=== PATIENT | male | born 1980 | race Caucasian/White ===

== ENCOUNTER → 2017-12-29 | Outpatient (CLI) | payer OTHER ==
--- NOTE | 2017-12-29 15:29 | US ---
EXAMINATION TYPE: US venous doppler duplex LE RT DATE OF EXAM: 12/29/2017 3:22 PM COMPARISON: NONE CLINICAL HISTORY: 37-year-old male M79.661 Pain In Limb, R22.41 Swelling. Right lower leg pain SIDE PERFORMED: right TECHNIQUE: The lower extremity deep venous system is examined utilizing real time linear array sonog sary with graded compression, doppler sonography and color-flow sonography. FINDINGS: VESSELS IMAGED: External Iliac Vein (EIV) Common Femoral Vein Deep Femoral Vein Greater Saphenous Vein * Femoral Vein Popliteal Vein Small Saphenous Vein * (* superficial vessels) Right Leg: No evidence of DVT at this time. Superficial thrombus noted right small saphenous vein IMPRESSION: 1. No evidence for DVT within the right lower extremity imaged from the groin to the knee. 2. Exam positive for SVT involving the small saphenous vein.
== END | disposition home or self-care (01) ==
LOC: RADUSWWP 14:50
PROVIDERS: ATTEND Family Medicine
DX: I82.811 Embolism and thrombosis of superficial veins of right lower extremity (principal); R22.41 Localized swelling, mass and lump, right lower limb; Z88.0 Allergy status to penicillin; Z91.040 Latex allergy status

== ENCOUNTER → 2019-11-24 | Outpatient (CLI) | payer OTHER ==
--- NOTE | 2019-11-24 20:14 | CT ---
EXAMINATION TYPE: CT chest wo con DATE OF EXAM: 11/24/2019 COMPARISON: None HISTORY: 39-year-old male Pulmonary nodule LT lung TECHNIQUE: Contiguous axial scanning of the chest without IV contrast. Coronal and sagittal reconstru ctions performed. CT DLP: 568.90 mGycm Automated exposure control for dose reduction was used. FINDINGS: Heart normal size without pericardial effusion. Borderline ectasia aortic root at 3.5 cm. Conventional arch vessel branching anatomy. 7 mm right paratracheal lymph node. No thoracic lymphadenopathy by CT size criteria. Mild diffuse bronchial wall thickening. Some strandy atelectasis or scarring at the right middle lobe . No consolidation or pleural effusion. No suspicious pulmonary nodule or mass. Small hiatal hernia. Visualized upper abdomen otherwise shows no gross abnormality. Bones: No osseous destructive process. IMPRESSION: 1. MILD DIFFUSE BRONCHIAL WALL THICKENING COULD REPRESENT BRONCHITIS OR ASTHMA. 2. NO PULMONARY NODULE IDENTIFIED. CLINICALLY CORRELATE. THE EXAM CAN BE REVIEWED WITH DIRECTED ATTEN TION IF PERSISTENT CLINICAL CONCERN. 3. SMALL HIATAL HERNIA.
== END | disposition home or self-care (01) ==
LOC: RADCTMAIN 16:10
PROVIDERS: ATTEND Family Medicine
DX: J98.09 Other diseases of bronchus, not elsewhere classified (principal); K44.9 Diaphragmatic hernia without obstruction or gangrene; Z88.0 Allergy status to penicillin; Z91.040 Latex allergy status
CPT/HCPCS: 71250